=== PATIENT | female | born 1995 | race Two or more races ===

== ENCOUNTER 2016-11-25 20:47 | Emergency (ER) | payer SELFPAY ==
--- NOTE | 2016-11-25 22:52 | ER Document Report ---
ED Medical Screen (RME) - General Chief Complaint: Chest Pain Stated Complaint: CHEST WALL PAIN Notes: 21 year old female, chief complaint of 4 days of right "rib" pain (points to RUQ ), worse with eating, reports some nausea with eating. No flank pain, SOB, fever , or other complaints. No daily meds or PMH reported. TRAVEL OUTSIDE OF THE [place] IN LAST 30 DAYS: No - Related Data Allergies/Adverse Reactions: No Known Allergies Allergy (Verified 11/25/16 22:46) Past Medical History - Social History Chew tobacco use (# tins/day): No Frequency of alcohol use: Occasional Drug Abuse: None Renal/ Medical History: Denies: Hx Peritoneal Dialysis Physical Exam - Vital signs Vitals: Temp Pulse Resp BP Pulse Ox 98.6 F 127 H 16 136/91 H 100 11/25/16 21:52 11/25/16 21:52 11/25/16 21:52 11/25/16 21:52 11/25/16 21:52 Course - Re-evaluation Re-evalutation: Patient declines pain meds, tachycardic, but well appearing. States she is nervous. Appears nervous. Some epigastric pain on limited sitting exam. - Vital Signs Vital signs: Temp Pulse Resp BP Pulse Ox 98.6 F 127 H 16 136/91 H 100 11/25/16 21:52 11/25/16 21:52 11/25/16 21:52 11/25/16 21:52 11/25/16 21:52 Doctor's Discharge - Discharge Additional Instructions: I have greeted and performed a rapid initial assessment of this patient. A comprehensive ED assessment and evaluation of the patient, analysis of test results and completion of the medical decision making process will be conducted by additional ED providers.
[2016-11-25 23:55] LABS: ABSOLUTE EOSINOPHILS # (AUTO) 0.1 10^3/uL (0.0-0.6); ABSOLUTE LYMPHOCYTES (AUTO) 2.1 10^3/uL (0.5-4.7); ABSOLUTE MONOCYTES (AUTO) 1.1 10^3/uL (0.1-1.4); ABSOLUTE NEUT (AUTO) 8.9 10^3/uL (1.7-8.2); BASOPHILS % (AUTO) 0.4 % (0-2); EOSINOPHILS % (AUTO) 0.5 % (0-6); HEMATOCRIT 34.8 % (36.0-47.0); HEMOGLOBIN 11.1 g/dL (12.0-15.5); HGB HCT DIFFERENCE -1.5; LYMPHOCYTES % (AUTO) 17.1 % (13-45); MEAN CORPUSCULAR HEMOGLOBIN 22.6 pg (27.0-33.4); MEAN CORPUSCULAR VOLUME 71 fl (80-97); MONOCYTES % (AUTO) 8.9 % (3-13); RED BLOOD COUNT 4.91 10^6/uL (3.72-5.28); RED CELL DISTRIBUTION WIDTH 17.4 % (11.5-14.0); SEGMENTED NEUTROPHILS % (AUTO) 73.1 % (42-78); WHITE BLOOD COUNT 12.1 10^3/uL (4.0-10.5)
[2016-11-26 00:02] LABS: APPEARANCE,URINE SLIGHTLY-CLOUDY; BILIRUBIN,URINE NEGATIVE (NEGATIVE); GLUCOSE, URINE NEGATIVE (NEGATIVE); KETONES,URINE 20 mg/dL (NEGATIVE); LEUKOCYTE ESTERASE,URINE TRACE (NEGATIVE); NITRITE,URINE POSITIVE (NEGATIVE); PROTEIN,URINE NEGATIVE (NEGATIVE); URINE SPECIFIC GRAVITY 1.026
[2016-11-26 00:05] LABS: ALANINE AMINOTRANSFERASE 22 U/L (9-52); ALBUMIN 4.7 g/dL (3.5-5.0); ALKALINE PHOSPHATASE 73 U/L (38-126); ANION GAP 16 (5-19); ASPARTATE AMINO TRANSFERASE 13 U/L (14-36); BILIRUBIN,DIRECT 0.1 mg/dL (0.0-0.4); BILIRUBIN,TOTAL 0.5 mg/dL (0.2-1.3); BLOOD UREA NITROGEN 9 mg/dL (7-20); CARBON DIOXIDE 25 mmol/L (22-30); CHLORIDE 102 mmol/L (98-107); CREATININE RESULT 0.66 mg/dL (0.52-1.25); GLUCOSE 121 mg/dL (75-110); LIPASE 55.2 U/L (23-300); POTASSIUM 3.6 mmol/L (3.6-5.0); SODIUM 143.4 mmol/L (137-145); TOTAL PROTEIN 8.1 g/dL (6.3-8.2)
[2016-11-26] MEDS ORDERED: NORMAL SALINE 1000 ML 1,000 ML IV ONE (02:16)
--- NOTE | 2016-11-26 02:19 | ER Document Report ---
ED General - General Chief Complaint: Chest Pain Stated Complaint: CHEST WALL PAIN Notes: Patient is a 21 year old female presents for complaint of chest pain is on the right side. She was seen in triage by the physician's public services assistant. His no says that the patient's pain is mostly right upper quadrant worse with eating. Patient actually tells me that the pain is more up into her chest. She says it' s from behind her breast. It's worse when she lays down or takes a deep breath. She said she has had some nausea when she eats but no vomiting and currently says she does not really feel that the pain as a whole lot worse when she eats. Denies difficulty breathing. No leg pain or leg swelling. No previous history of DVT or PE. No recent cough or congestion. No other complaints at this time. TRAVEL OUTSIDE OF THE [place] IN LAST 30 DAYS: No - Related Data Allergies/Adverse Reactions: No Known Allergies Allergy (Verified 11/25/16 22:46) Past Medical History - Social History Smoking Status: Never Smoker Chew tobacco use (# tins/day): No Frequency of alcohol use: Occasional Drug Abuse: None Family History: Reviewed & Not Pertinent Patient has suicidal ideation: No Patient has homicidal ideation: No Renal/ Medical History: Denies: Hx Peritoneal Dialysis Surgical Hx: Negative - Immunizations Hx Diphtheria, Pertussis, Tetanus Vaccination: No Review of Systems - Review of Systems Notes: My Normal Review Basic REVIEW OF SYSTEMS: CONSTITUTIONAL : Denies fever, chills, or sweats. Denies recent illness. EENT: Denies eye, ear, throat, or mouth pain or symptoms. Denies nasal or sinus congestion. CARDIOVASCULAR: Right-sided chest pain RESPIRATORY: Denies cough, cold, or chest congestion. Denies shortness of breath, difficulty breathing, or wheezing. GASTROINTESTINAL: Denies abdominal pain. Some nausea.. Denies constipation. Last BM: GENITOURINARY: Denies difficulty urinating, painful urination, burning, frequency, or blood in urine. FEMALE GENITOURINARY: Denies vaginal bleeding, abnormal or irregular periods. MUSCULOSKELETAL: Denies neck or back pain or joint pain or swelling. SKIN: Denies rash or skin lesions.. NEUROLOGICAL: Denies altered mental status or loss of consciousness. Denies headache. Denies weakness or paralysis or loss of use of either side. Denies problems with gait or speech. Denies sensory or motor loss. ALL OTHER SYSTEMS REVIEWED AND NEGATIVE. Physical Exam - Vital signs Vitals: Temp Pulse Resp BP Pulse Ox 98.6 F 127 H 16 136/91 H 100 11/25/16 21:52 11/25/16 21:52 11/25/16 21:52 11/25/16 21:52 11/25/16 21:52 - Notes Notes: General Appearance: Well nourished, alert, cooperative, no acute distress, no obvious discomfort. Well-appearing. Vitals: reviewed, See vital signs table. Head: no swelling or tenderness to the head Eyes: PERRL, EOMI, Conjuctiva clear Mouth: No decreasd moisturenopathy Neck: Supple, no neck tenderness, No thyromegaly Lungs: No wheezing, No rales, No rhonci, No accessory muscle use, good air exchange bilaterally. Heart: Normal rate, Regular rythm, No murmur, no rub Chest wall: No reproducible pain to palpation of the chest wall or ribs. Back: No reproducible pain to palpation of the back. Abdomen: Normal BS, soft, No rigidity, No abdominal tenderness, No guarding, no rebound, no abdominal masses, no organomegaly Extremities: strength 5/5 in all extremities, good pulses in all extremities, no swelling or tenderness in the extremities, no edema. Skin: warm, dry, appropriate color, no rash Neuro: speech clear, oriented x 3, normal affect, responds appropriately to questions. Course - Vital Signs Vital signs: Temp Pulse Resp BP Pulse Ox 98.5 F 82 16 100/65 100 11/26/16 05:35 11/26/16 05:35 11/26/16 05:35 11/26/16 05:35 11/26/16 05:35 - Laboratory Result Diagrams: 11/25/16 23:37 11/25/16 23:37 Laboratory results interpreted by me: 11/25/16 11/25/16 11/25/16 23:37 23:37 23:37 WBC 12.1 H Hgb 11.1 L Hct 34.8 L MCV 71 L MCH 22.6 L RDW 17.4 H Absolute Neutrophils 8.9 H Glucose 121 H AST 13 L Urine Ketones 20 H Urine Blood SMALL H Urine Nitrite POSITIVE H Urine Urobilinogen 4.0 H Ur Leukocyte Esterase TRACE H - EKG Interpretation by Me Additional EKG results interpreted by me: 11/26/16 02:29 EKG is reviewed and interpreted by me with a rate of [address] segment elevation or depression. No T wave inversion. SD interval, QRS duration, QTC intervals are within normal range. No old EKG available for comparison. - Transfer of Care Notes: 11/26/16 06:45 Chest x-ray usually showed possible obstructive process. Patient's labs and no cough no congestion no fever and therefore still concerned that this could be potentially PE with infarction based on her tachycardia and not having any recent cough or pneumonia like symptoms. CT angio was obtained and does confirm that this is a pneumonia without PE. Patient replaced Levaquin. Clinically she looks well. Patient encouraged return to ER shows fevers, worsening pain, or difficulty breathing. Patient agrees with plan and will be discharged home. Dictation of this chart was performed using voice recognition software; therefore, there may be some unintended grammatical errors. Discharge - Discharge Clinical Impression: Chest pain Qualifiers: Chest pain type: unspecified Qualified Code(s): R07.9 - Chest pain, unspecified Pneumonia Qualifiers: Pneumonia type: due to unspecified organism Laterality: right Lung location: unspecified part of lung Qualified Code(s): J18.9 - Pneumonia, unspecified organism Condition: Good Disposition: HOME, SELF-CARE Additional Instructions: PNEUMONIA: Your examination indicates that you have pneumonia. This is an infection of the lung tissue, usually caused by bacteria or a virus. Symptoms include cough, fever, shaking chills, chest pain, shortness of breath, and coughing up bloody sputum. Treatment for bacterial pneumonia includes rest, antibiotics for 10 to 14 days, increasing your clear liquid intake, a cool mist humidifier at your bedside, and fever medication. Often, a repeat chest X-ray is performed in a few weeks--even if you feel better--to ascertain whether the infection has completely resolved and no underlying lung problem is present. You should call the physician if you develop persistent vomiting, high fever that does not respond to fever medication, increasing shortness of breath , confusion, or lethargy. Also, failure to improve within two to three days is an indication for re-examination. ANTIBIOTIC THERAPY: You have been given an antibiotic prescription. It's important that you take all the medication, unless instructed otherwise by your physician. Failure to complete the entire course can result in relapse of your condition. Common side effects of antibiotics include nausea, intestinal cramping, or diarrhea. Women may develop vaginal yeast infections, and babies can get yeast (thrush) in the mouth following the use of antibiotics. Contact your physician if you develop significant side effects from this medication. Allergy to this antibiotic can result in hives, wheezing, faintness, or itching. If symptoms of allergy occur, stop the medication and call the doctor. LEVOFLOXACIN: You have been given an antibacterial agent, levofloxacin (Levaquin). This medicine is not related to the penicillins, sulfas, cephalosporins, or tetracyclines. It is often given to patients who are allergic to these drugs. It has been chosen for you either because other drugs are not appropriate, or because of the nature of your problem. Levaquin should not be taken with antacids, as these can decrease its effectiveness. It can be taken without regard to meals. LEVAQUIN SHOULD NOT BE TAKEN BY CHILDREN, NURSING WOMEN, OR WOMEN. Although Levaquin is usually well-tolerated, common side effects can include nausea and diarrhea. Contact your doctor if you experience any unusual symptoms while on this medication, such as joint pain or swelling, shortness of breath, wheezing, faintness, or hives. FOLLOW-UP CARE: If you have been referred to a physician for follow-up care, call the physician s office for an appointment as you were instructed or within the next two days. If you experience worsening or a significant change in your symptoms, notify the physician immediately or return to the Emergency Department at any time for re-evaluation. Please follow-up with your doctor in 5-7 days for reevaluation and possible repeat x-ray to make sure that your pneumonia is improving. Please return to the ER immediately if you have fevers, difficulty breathing, or feel unwell. Prescriptions: Levofloxacin [Levaquin 750 mg Tablet] 750 mg PO DAILY #6 tablet
[2016-11-26] MEDS ORDERED: LEVOFLOXACIN 750 MG TABLET PO ONE (04:58)
[2016-11-26 05:42] VITALS: BP 100/65
--- NOTE | 2016-11-26 08:10 | EKG REPORT ---
SEVERITY:- ABNORMAL ECG - SINUS RHYTHM NONSPECIFIC T ABNORMALITIES, ANTERIOR LEADS : Confirmed by: Kurt Rooney MD 26-Nov-2016 08:08:17
== END 2016-11-26 05:42 | disposition home or self-care (01) ==
LOC: ER 20:47
DX: J18.9 Pneumonia, unspecified organism (principal); R07.89 Other chest pain; R11.0 Nausea; R00.0 Tachycardia, unspecified
CPT/HCPCS: 93005; 99285; 96360; 36415; 83690; 85025; 81025; 80053; 81001; 71010; 76705; 71275; 93010; J7030